=== PATIENT | male | born 1990 | race Two or more races ===

== ENCOUNTER 2019-09-24 07:07 | Inpatient (IN) | payer SELFPAY ==
[~2019-09-24] VITALS: Ht 182.9 cm; Wt 97.4 kg
[2019-09-24] MEDS ORDERED: PROMETHAZINE HCL 25 MG/ML 1ML ONE (08:50)
[2019-09-24] MEDS ORDERED: SODIUM CHLORIDE 0.9% 1,000 ML IVB ONE (08:54)
[2019-09-24] MEDS ORDERED: PROMETHAZINE HCL 25 MG/ML 1ML IV ONE (09:00)
[2019-09-24] MEDS ORDERED: SODIUM CHLORIDE 0.9% 1,000 ML IV ONE (09:00)
[2019-09-24 09:24] LABS: Urine Bacteria NONE SEEN /hpf (None Seen); Urine Blood 1+ /uL (Negative); Urine Hyaline Cast MANY /lpf (0 - 2); Urine Specific Gravity 1.035 (1.001-1.035); Urine WBC 3 /hpf (0 - 3)
[2019-09-24 10:06] LABS: Basophils # (auto) 0.1 10 ^3/uL (0-0.2); Eosinophils # (auto) 0.1 10 ^3/uL (0-0.8); Lymphocytes # (auto) 1.6 10 ^3/uL (0.4-5.4); Monocytes # (auto) 0.7 10 ^3/uL (0-1.3); White Blood Cell 9.9 10^3/uL (4.4-10.8)
[2019-09-24 10:08] LABS: Basophils % (auto) 0.6 % (0.0-2.0); Eosinophils % (auto) 0.9 % (0.0-7.0); Lymphocytes % (auto) 16.1 % (10.0-50.0); Mean Corpuscular Volume 88.4 fL (80.0-100.0); Monocytes % (auto) 7.4 % (0.0-12.0); Neutrophils # (auto) 7.4 10 ^3/uL (1.6-8.6); Platelet Count (auto) 306 10^3/uL (140-450); Red Blood Cells 4.75 10^6/uL (4.5-5.90); Red Cell Distribution Width 14.5 % (11.8-14.3)
[2019-09-24] MEDS ORDERED: ONDANSETRON HCL 4 MG/2 ML VIAL IV ONE ×2 (10:15→13:00)
[2019-09-24 10:29] LABS: Potassium 3.7 mmol/L (3.5-5.1)
[2019-09-24 10:55] LABS: Hemoglobin 14.1 g/dL (13.5-17.5); Mean Corpuscular Hemoglobin 31.6 pg (28.0-32.0); Mean Corpuscular Hgb Conc. 35.5 g/dL (32.0-36.0)
[2019-09-24 11:31] LABS: Alcohol, Urine < 3.0 mg/dL (0-10); Amphetamine Screen, Urine NEGATIVE (NEGATIVE); Barbiturate Scree,Urine NEGATIVE (NEGATIVE); Benzodiazephine Screen, Urine NEGATIVE (NEGATIVE); Cannabinoid Screen, Urine NEGATIVE (NEGATIVE); Cocaine Screen, Urine NEGATIVE (NEGATIVE); Opiate Scree,Urine NEGATIVE (NEGATIVE); Phencyclidine Screen, Urine NEGATIVE (NEGATIVE)
[2019-09-24 11:42] LABS: BUN/Creatinine Ratio 15.4
[2019-09-24 11:43] LABS: Aspartate Aminotransferase 9.6 U/L (15-37)
[2019-09-24 11:44] LABS: Albumin 3.4 g/dL (3.4-5.0); Bilirubin, Total 1.9 mg/dL (0.2-1.0); Calcium 7.3 mg/dL (8.5-10.1); Total Protein 9.2 g/dL (6.4-8.2)
[2019-09-24 12:17] LABS: Cholesterol < 50 mg/dL (< 200); Triglycerides 108 mg/dL (< 150)
[2019-09-24 12:20] LABS: HDL Cholesterol 12 mg/dL (40-59); LDL Cholesterol < 1 mg/dL (< 100)
[2019-09-24] MEDS ORDERED: InsuLIN R (HUMAN) 100 UNITS in SODIUM CHL 0.9% 99 ML IV SCH (12:48)
[2019-09-24] MEDS ORDERED: HYDROmorphone HCL 2 MG/ML VL IV ONE (13:00)
[2019-09-24] MEDS ORDERED: DEXTROSE (50%) 50ML SYRG IV PRN ×2 (13:00→14:45)
[2019-09-24] MEDS ORDERED: INSULIN LANTUS (GLARGINE) 1 /0.01ml (100units/ml) SC ONE ×2 (13:00→17:00)
[2019-09-24] MEDS: SODIUM CHLORIDE 0.9% 1,000 ML IV SCH ×4 (13:13→21:27)
[2019-09-24] MEDS: ACCU-CHEK COMFORT CURVE STRIP VI SCH ×5 (13:30→20:07)
[2019-09-24 13:51] LABS: Calcium 7.5 mg/dL (8.5-10.1); Magnesium 2.1 mg/dL (1.6-2.6); Potassium 4.3 mmol/L (3.5-5.1)
[2019-09-24 13:56] LABS: BUN/Creatinine Ratio 9.1; Phosphorus 3.6 mg/dL (2.5-4.90)
[2019-09-24] MEDS ORDERED: NITROGLYCERIN 0.4 MG SL TAB SL PRN (14:15)
[2019-09-24] MEDS ORDERED: MORPHINE SULF INJ 2 MG/ML SYRINGE 1ML IV PRN (14:15)
[2019-09-24] MEDS ORDERED: levoFLOXacin 500MG 100 ML IV ONE (14:45)
[2019-09-24] MEDS ORDERED: traMADol HCL 50 MG TAB PO PRN (14:45)
[2019-09-24] MEDS ORDERED: ACETAMINOPHEN 500 MG TAB PO PRN (14:45)
[2019-09-24] MEDS ORDERED: TEMAZEPAM 15 MG CAP PO PRN (14:45)
[2019-09-24] MEDS ORDERED: LACTULOSE 20Gm/30ML SOLN PO PRN (14:45)
[2019-09-24] MEDS: InsuLIN REG 1unit/0.01ml Soln (100units/ml) SC SCH ×2 (15:33→20:12)
[2019-09-24] MEDS: FAMOTIDINE (10MG/ML) 2ML VL IV SCH ×2 (16:05→23:24)
[2019-09-24 16:33] LABS: Calcium 7.8 mg/dL (8.5-10.1); Potassium 4.4 mmol/L (3.5-5.1)
[2019-09-24 16:35] LABS: BUN/Creatinine Ratio 7.8
[2019-09-24] MEDS ORDERED: SODIUM CHLORIDE 0.9% 1,000 ML IV SCH ×2 (16:48→18:48)
[2019-09-24] MEDS: HYDROmorphone HCL 2 MG/ML VL IV PRN (20:58)
[2019-09-24] MEDS: PROMETHAZINE HCL 25 MG/ML 1ML IV PRN (20:59)
[2019-09-24 22:30] VITALS: BP 133/82
[2019-09-24] MEDS: DOCUSATE SOD 100 MG CAP PO SCH (23:24)
[2019-09-24] MEDS: CLINDAMYCIN 600MG IV 50 ML IV SCH (23:24)
[2019-09-24] MEDS: SENNA 8.6 MG TAB PO SCH (23:24)
[2019-09-25] MEDS: ACCU-CHEK COMFORT CURVE STRIP VI SCH ×6 (00:32→20:05)
[2019-09-25] MEDS: InsuLIN REG 1unit/0.01ml Soln (100units/ml) SC SCH ×6 (00:39→20:00)
[2019-09-25 01:32] LABS: BUN/Creatinine Ratio 6.7; Calcium 6.9 mg/dL (8.5-10.1); Potassium 4.4 mmol/L (3.5-5.1)
[2019-09-25] MEDS: HYDROmorphone HCL 2 MG/ML VL IV PRN ×4 (02:17→21:29)
[2019-09-25] MEDS: PROMETHAZINE HCL 25 MG/ML 1ML IV PRN ×4 (02:17→21:28)
[2019-09-25] MEDS ORDERED: METF-370 PO (02:25)
[2019-09-25] MEDS: SODIUM CHLORIDE 0.9% 1,000 ML IV SCH ×4 (04:03→22:20)
[2019-09-25 05:00] VITALS: BP 135/81
[2019-09-25] MEDS: CLINDAMYCIN 600MG IV 50 ML IV SCH ×3 (05:53→21:27)
[2019-09-25 06:16] LABS: Potassium 4.5 mmol/L (3.5-5.1)
[2019-09-25 06:21] LABS: Albumin 2.7 g/dL (3.4-5.0); BUN/Creatinine Ratio 9.5; Calcium 8.4 mg/dL (8.5-10.1)
[2019-09-25 06:30] LABS: Total Protein 7.7 g/dL (6.4-8.2)
[2019-09-25] MEDS: INSULIN LANTUS (GLARGINE) 1 /0.01ml (100units/ml) SC SCH (06:31)
[2019-09-25] MEDS: levoFLOXacin 500MG 100 ML IV SCH (08:25)
[2019-09-25] MEDS: FAMOTIDINE (10MG/ML) 2ML VL IV SCH ×2 (08:26→21:28)
[2019-09-25] MEDS: DOCUSATE SOD 100 MG CAP PO SCH ×2 (08:35→21:28)
[2019-09-25 09:00] VITALS: BP 127/60
[2019-09-25 13:00] VITALS: BP 132/82
[2019-09-25 17:00] VITALS: BP 134/86
[2019-09-25] MEDS: SENNA 8.6 MG TAB PO SCH (21:28)
[2019-09-25 22:00] VITALS: BP 129/76
[2019-09-26] MEDS: ACCU-CHEK COMFORT CURVE STRIP VI SCH ×5 (00:12→16:37)
[2019-09-26] MEDS: InsuLIN REG 1unit/0.01ml Soln (100units/ml) SC SCH ×5 (00:12→16:37)
[2019-09-26 05:00] VITALS: BP 107/71
[2019-09-26] MEDS: SODIUM CHLORIDE 0.9% 1,000 ML IV SCH ×3 (06:17→13:00)
[2019-09-26] MEDS: CLINDAMYCIN 600MG IV 50 ML IV SCH ×2 (06:18→14:00)
[2019-09-26 06:22] LABS: Basophils # (auto) 0 10 ^3/uL (0-0.2); Basophils % (auto) 0.4 % (0.0-2.0); Eosinophils # (auto) 0.2 10 ^3/uL (0-0.8); Eosinophils % (auto) 3.5 % (0.0-7.0); Hematocrit 36.8 % (41.0-53.0); Hemoglobin 12.5 g/dL (13.5-17.5); Lymphocytes # (auto) 1.4 10 ^3/uL (0.4-5.4); Mean Corpuscular Hemoglobin 30.4 pg (28.0-32.0); Mean Corpuscular Volume 89.4 fL (80.0-100.0); Monocytes # (auto) 0.2 10 ^3/uL (0-1.3); Monocytes % (auto) 5.1 % (0.0-12.0); Neutrophils # (auto) 2.9 10 ^3/uL (1.6-8.6); Nucleated Red Blood Cells % 0.1 %; Platelet Count (auto) 152 10^3/uL (140-450); Red Blood Cells 4.11 10^6/uL (4.5-5.90); Red Cell Distribution Width 15.6 % (11.8-14.3); White Blood Cell 4.8 10^3/uL (4.4-10.8)
[2019-09-26] MEDS: INSULIN LANTUS (GLARGINE) 1 /0.01ml (100units/ml) SC SCH (06:28)
[2019-09-26] MEDS: PROMETHAZINE HCL 25 MG/ML 1ML IV PRN (06:36)
[2019-09-26] MEDS: HYDROmorphone HCL 2 MG/ML VL IV PRN (06:37)
[2019-09-26 06:55] LABS: Potassium 3.3 mmol/L (3.5-5.1)
[2019-09-26 07:02] LABS: Albumin 2.4 g/dL (3.4-5.0); BUN/Creatinine Ratio 25.5; Bilirubin, Total 0.6 mg/dL (0.2-1.0); Calcium 8.1 mg/dL (8.5-10.1); Total Protein 6.9 g/dL (6.4-8.2)
[2019-09-26 09:00] VITALS: BP 92/59
[2019-09-26] MEDS: DOCUSATE SOD 100 MG CAP PO SCH (09:23)
[2019-09-26] MEDS: FAMOTIDINE (10MG/ML) 2ML VL IV SCH (09:23)
[2019-09-26] MEDS: levoFLOXacin 500MG 100 ML IV SCH (09:24)
[2019-09-26 13:00] VITALS: BP 121/78
[2019-09-26 14:04] VITALS: BP 92/59
[2019-09-26 17:00] VITALS: BP 131/81
== END 2019-09-26 17:13 | disposition home or self-care (01) | DRG 438 ==
LOC: ER 07:07 → OVERFLOW 07:08 → TELE-WESTW 22:44
PROVIDERS: ADMIT Internal Medicine; ATTEND Family Medicine
DX: K85.90 Acute pancreatitis without necrosis or infection, unspecified (principal); E11.10 Type 2 diabetes mellitus with ketoacidosis without coma; E44.1 Mild protein-calorie malnutrition; Z79.84 Long term (current) use of oral hypoglycemic drugs; Z91.19 Patient's noncompliance with other medical treatment and regimen; Z68.29 Body mass index [BMI] 29.0-29.9, adult
CPT/HCPCS: 36415; 36600; 71046; 74176; 80048; 80053; 80061; 80307; 81001; 82010; 82150; 82805; 82962; 83036; 83690; 83735; 83930; 84100; 84443; 85025; 85652; 87086; 93005; 96361; 96365; 96366; 96372; 96375; 96376; G0378; J1815; J1956; J2405; J3490

== ENCOUNTER 2019-11-08 00:44 | Inpatient (IN) | payer SELFPAY ==
[~2019-11-08] VITALS: Ht 182.9 cm; Wt 81.1 kg
[~2019-11-08 00:44] MED LIST: METF-370 PO
[2019-11-08 01:39] LABS: Basophils # (auto) 0.1 10 ^3/uL (0-0.2); Eosinophils # (auto) 0.1 10 ^3/uL (0-0.8)
[2019-11-08 01:41] LABS: Basophils % (auto) 0.9 % (0.0-2.0); Lymphocytes # (auto) 2.2 10 ^3/uL (0.4-5.4); Mean Corpuscular Volume 89.7 fL (80.0-100.0); Monocytes # (auto) 0.5 10 ^3/uL (0-1.3); Monocytes % (auto) 5.8 % (0.0-12.0); Neutrophils # (auto) 6.3 10 ^3/uL (1.6-8.6); Neutrophils % (auto) 68.3 % (37.0-80.0); Nucleated Red Blood Cells % 0.4 %; Platelet Count (auto) 361 10^3/uL (140-450); Red Blood Cells 5.12 10^6/uL (4.5-5.90); Red Cell Distribution Width 15.7 % (11.8-14.3); White Blood Cell 9.2 10^3/uL (4.4-10.8)
[2019-11-08 01:56] LABS: Albumin 3.7 g/dL (3.4-5.0); Calcium 8.5 mg/dL (8.5-10.1); Potassium 5.1 mmol/L (3.5-5.1)
[2019-11-08 02:00] LABS: BUN/Creatinine Ratio 9.2
[2019-11-08 02:29] LABS: Total Protein 8.7 g/dL (6.4-8.2)
[2019-11-08 02:35] LABS: Hemoglobin 17.4 g/dL (13.5-17.5)
[2019-11-08 02:36] LABS: Hematocrit 49.9 % (41.0-53.0); Mean Corpuscular Hgb Conc. 34.9 g/dL (32.0-36.0)
[2019-11-08 02:50] LABS: Urine Bacteria FEW /hpf (None Seen); Urine Blood TRACE /uL (Negative); Urine Specific Gravity 1.036 (1.001-1.035); Urine WBC 11 /hpf (0 - 3)
[2019-11-08] MEDS ORDERED: PANTOPRAZOLE 40 MG/10 ML VIAL INJ IV STA (07:06)
[2019-11-08] MEDS ORDERED: SODIUM CHLORIDE 0.9% 1,000 ML IVB ONE (07:06)
[2019-11-08] MEDS ORDERED: ONDANSETRON HCL 4 MG/2 ML VIAL IV ONE (07:15)
[2019-11-08] MEDS ORDERED: MORPHINE SULFATE 4 MG/ML SYR/VIAL IV ONE (07:15)
[2019-11-08] MEDS ORDERED: DEXTROSE (50%) 50ML SYRG IV PRN ×2 (07:30→12:45)
[2019-11-08] MEDS ORDERED: DOCUSATE SOD 100 MG CAP PO PRN (07:30)
[2019-11-08] MEDS ORDERED: LORazepam 0.5 MG TAB PO PRN (07:30)
[2019-11-08] MEDS ORDERED: ONDANSETRON HCL 4 MG/2 ML VIAL IV PRN (07:30)
[2019-11-08] MEDS ORDERED: InsuLIN REG 1unit/0.01ml Soln (100units/ml) IV ONE (07:30)
[2019-11-08] MEDS ORDERED: HYDROcodone-ACET 5/325MG TAB PO PRN (07:30)
[2019-11-08] MEDS ORDERED: ACETAMINOPHEN 325 MG TAB PO PRN (07:30)
[2019-11-08] MEDS: cefTRIAXone 1GM/50ML D5W 50 ML IV SCH (08:22)
[2019-11-08] MEDS: SODIUM CHLORIDE 0.9% 1,000 ML IV SCH ×4 (09:09→17:49)
[2019-11-08] MEDS: PANTOPRAZOLE 40 MG/10 ML VIAL INJ IV SCH (10:00)
[2019-11-08 10:12] LABS: Basophils # (auto) 0.1 10 ^3/uL (0-0.2); Basophils % (auto) 0.8 % (0.0-2.0); Eosinophils # (auto) 0 10 ^3/uL (0-0.8); Eosinophils % (auto) 0.3 % (0.0-7.0); Hematocrit 47.4 % (41.0-53.0); Hemoglobin 16.1 g/dL (13.5-17.5); Lymphocytes # (auto) 1.5 10 ^3/uL (0.4-5.4); Mean Corpuscular Volume 91.3 fL (80.0-100.0); Monocytes # (auto) 0.4 10 ^3/uL (0-1.3); Monocytes % (auto) 4.9 % (0.0-12.0); Neutrophils # (auto) 6.2 10 ^3/uL (1.6-8.6); Nucleated Red Blood Cells % 0.2 %; Platelet Count (auto) 306 10^3/uL (140-450); Red Blood Cells 5.19 10^6/uL (4.5-5.90); Red Cell Distribution Width 15.9 % (11.8-14.3); White Blood Cell 8.1 10^3/uL (4.4-10.8)
[2019-11-08] MEDS ORDERED: METF-929 PO (10:14)
[2019-11-08] MEDS ORDERED: InsuLIN REG 1unit/0.01ml Soln (100units/ml) SC SCH (12:00)
[2019-11-08] MEDS ORDERED: ACCU-CHEK COMFORT CURVE STRIP VI SCH (12:00)
--- NOTE | 2019-11-08 12:25 | NUR ---
Report received from Va HOLMAN, patient to PACU, vss, assumed care of patient, awake and alert. No S/S of distress/SOB noted, patient states he will be due for pain medication soon, will continue to monitor.
[2019-11-08] MEDS ORDERED: IOHEXOL 300 MG/ML 100ML BOTTLE IJ ONE (12:45)
--- NOTE | 2019-11-08 12:46 | NUR ---
BLOOD SUGAR BLOOD SUGAR READING 242
[2019-11-08 12:53] VITALS: BP 132/65
[2019-11-08] MEDS: MORPHINE SULF INJ 2 MG/ML SYRINGE 1ML IV PRN ×2 (13:27→18:06)
--- NOTE | 2019-11-08 15:35 | NUR ---
Radiology to the PACU to see patient.
--- NOTE | 2019-11-08 15:40 | NUR ---
OFF UNIT TO CT
--- NOTE | 2019-11-08 15:52 | NUR ---
PATIENT RETURN FROM CT, REPORT RECEIVED, WILL CONTINUE TO MONITOR.
[2019-11-08 17:00] VITALS: BP 132/87
[2019-11-08] MEDS: InsuLIN REG 1unit/0.01ml Soln (100units/ml) SC SCH (18:00)
[2019-11-08] MEDS: ACCU-CHEK COMFORT CURVE STRIP VI SCH (18:00)
[2019-11-08] MEDS ORDERED: ATORVASTATIN 20 MG TAB PO SCH (18:00)
[2019-11-08 18:15] LABS: Amphetamine Screen, Urine NEGATIVE (NEGATIVE); Barbiturate Scree,Urine NEGATIVE (NEGATIVE); Benzodiazephine Screen, Urine NEGATIVE (NEGATIVE); Cannabinoid Screen, Urine NEGATIVE (NEGATIVE); Cocaine Screen, Urine NEGATIVE (NEGATIVE); Opiate Scree,Urine NEGATIVE (NEGATIVE); Phencyclidine Screen, Urine NEGATIVE (NEGATIVE)
--- NOTE | 2019-11-08 18:15 | NUR ---
Report provided in detail to Shy HOLMAN. All concerns and questions addressed
--- NOTE | 2019-11-08 19:20 | NUR ---
OPENING NOTE- NOC SHIFT PATIENT IS ALERT AND ORIENTED X4, ANSWERS IN COMPLETE SENTENCES AND MAKES APPROPRIATE EYE CONTACT. PATIENT IS IN BED, BED IS LOCKED AT LOWEST POSITION, BED RAILS UP X2 AND HEAD OF BED IS UP >30 DEGREES FOR SAFETY PRECAUTIONS. BEDSIDE TABLE WITHIN REACH, CALL LIGHT WITHIN REACH, PERSONAL BELONGINGS WITHIN REACH. DISCUSSED POC WITH PATIENT AND INSTRUCTED PATIENT TO CALL PRN; PATIENT VERBALIZED UNDERSTANDING. WILL CONTINUE TO MONITOR Q1H AND PRN.
[2019-11-08 22:00] VITALS: BP 125/79
[2019-11-08] MEDS ORDERED: INSULIN LANTUS (GLARGINE) 1 /0.01ml (100units/ml) SC SCH (22:00)
[2019-11-08 23:24] LABS: Anion Gap 11 (5-15); Blood Urea Nitrogen 9 mg/dL (7-18); Calcium 8.7 mg/dL (8.5-10.1); Carbon Dioxide 17 mmol/L (21-32); Chloride 109 mmol/L (98-107); Glucose 205 mg/dL (74-106); Potassium 4.2 mmol/L (3.5-5.1); Sodium 137 mmol/L (136-145)
[2019-11-08 23:27] LABS: BUN/Creatinine Ratio 12.5; Cholesterol 230 mg/dL (< 200); GFR African American 166 mL/min; GFR Non-African American 137 mL/min; HDL Cholesterol 30 mg/dL (40-59); Triglycerides 696 mg/dL (< 150)
[2019-11-09] MEDS: ACCU-CHEK COMFORT CURVE STRIP VI SCH ×4 (00:05→17:08)
[2019-11-09] MEDS: InsuLIN REG 1unit/0.01ml Soln (100units/ml) SC SCH ×4 (00:06→17:08)
[2019-11-09] MEDS: SODIUM CHLORIDE 0.9% 1,000 ML IV SCH ×2 (02:11→09:38)
[2019-11-09 05:00] VITALS: BP 113/72
--- NOTE | 2019-11-09 06:47 | NUR ---
SISTER GEOVANNA PICKED UP PATIENT'S CAR KEYS IN ER.
[2019-11-09 07:45] LABS: Potassium 3.6 mmol/L (3.5-5.1)
[2019-11-09 07:49] LABS: Albumin 2.9 g/dL (3.4-5.0); BUN/Creatinine Ratio 18.3; Calcium 8.4 mg/dL (8.5-10.1); Magnesium 1.8 mg/dL (1.6-2.6)
[2019-11-09 07:51] LABS: Bilirubin, Total 0.6 mg/dL (0.2-1.0); Total Protein 7.1 g/dL (6.4-8.2)
[2019-11-09 08:44] VITALS: BP 126/72
[2019-11-09] MEDS: cefTRIAXone 1GM/50ML D5W 50 ML IV SCH (09:38)
[2019-11-09] MEDS: PANTOPRAZOLE 40 MG/10 ML VIAL INJ IV SCH (09:38)
[2019-11-09 13:00] VITALS: BP 135/81
[2019-11-09] MEDS ORDERED: ATOR20TA PO (16:00)
[2019-11-09 17:00] VITALS: BP 131/81
== END 2019-11-09 18:30 | disposition home or self-care (01) | DRG 439 ==
LOC: ER 00:46 → TELE 00:47 → TELE-WESTW 17:18
PROVIDERS: ADMIT Hospitalist; ATTEND Internal Medicine
DX: K85.90 Acute pancreatitis without necrosis or infection, unspecified (principal); N39.0 Urinary tract infection, site not specified; K86.3 Pseudocyst of pancreas; E11.65 Type 2 diabetes mellitus with hyperglycemia; K86.1 Other chronic pancreatitis; E66.01 Morbid (severe) obesity due to excess calories; E78.5 Hyperlipidemia, unspecified; Z68.24 Body mass index [BMI] 24.0-24.9, adult
CPT/HCPCS: 36415; 74177; 80048; 80053; 80061; 80307; 81001; 82150; 83036; 83690; 83735; 85025; 87086; C9113; G0378; J0696; J1815; J2405